=== PATIENT | male | born 1980 | race African-American/Black ===

== ENCOUNTER 2018-03-21 20:24 | Emergency (ER) | payer BC ==
[2018-03-21] MEDS: KETOROLAC 60 MG INJ IM (22:09)
[2018-03-21] MEDS: DEXAMETHASONE 10 MG/ML 1 ML INJ IM (22:09)
== END 2018-03-21 22:24 | disposition home or self-care (01) ==
LOC: FTE 20:24
DX: M54.5 Low back pain (principal)
CPT/HCPCS: 96372; 99284-25; J1100